=== PATIENT | female | born 1985 | race African-American/Black ===

== ENCOUNTER 2017-02-07 09:08 | Inpatient (IN) | payer MEDICAID ==
[2017-02-07] MEDS ORDERED: STADOL IV PRN (10:16)
[2017-02-07] MEDS ORDERED: XYLOCAINE 2% INFILTRATI ONE (10:16)
[2017-02-07] MEDS ORDERED: ePHEDrine SULFATE IV PRN ×2 (10:16→15:36)
[2017-02-07] MEDS ORDERED: MINERAL OIL PO PRN (10:16)
[2017-02-07] MEDS ORDERED: POLYCILLIN/NS 2 GM/100 ML 2 GM/100 ML BAG IV ONE (10:16)
[2017-02-07] MEDS ORDERED: SUBLIMAZE IV PRN (10:16)
[2017-02-07] MEDS ORDERED: BRETHINE SUB-Q PRN (10:16)
[2017-02-07] MEDS ORDERED: BRETHINE IVP PRN (10:16)
[2017-02-07] MEDS ORDERED: ZOFRAN IV PRN (10:16)
[2017-02-07 10:28] LABS: Hematocrit 34.5 % (30.3-42.9); Hemoglobin 11.1 gm/dl (10.1-14.3); Mean Corpuscular HGB Conc 32 % (30-34); Platelet Count 235 K/mm3 (140-440); Red Blood Count 4.95 M/mm3 (3.65-5.03); Red Cell Distribution Width 16.7 % (13.2-15.2); White Blood Count 10.3 K/mm3 (4.5-11.0)
[2017-02-07 10:31] LABS: Mean Corpuscular Hemoglobin 22 pg (28-32); Mean Corpuscular Volume 70 fl (79-97)
[2017-02-07] MEDS ORDERED: PITOCin/NS 20 UNIT/1000ML DRIP 20 UNITS/1,000 ML BAG IV SCH (11:00)
[2017-02-07] MEDS ORDERED: PITOCin/NS 30 UNIT/500ML 30 UNITS/500 ML BAG IV SCH (11:00)
[2017-02-07] MEDS: LACTATED RINGERS 1,000 ML IV SCH ×2 (11:02→14:55)
[2017-02-07] MEDS: PITOCin/NS 30 UNIT/500ML 30 UNITS/500 ML BAG IV SCH ×4 (11:02→14:35)
--- NOTE | 2017-02-07 12:13 | History and Physical Report ---
History of Present Illness Date of examination: 02/07/17 Date of admission: 02/07/17 11:25 Chief complaint: Leaking fluid, contractions History of present illness: 31 yo at at 39 weeks. care since 11.1 week at [facility], co managed with [facility] for Hx of PTD, obesity. 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 Family/Genetic History: diabetes, hypertension Social history: denies: smoking, alcohol abuse, prescription drug abuse, IV drug use - Obstetrical History Expected Date of Delivery: 02/14/17 Actual Gestation: 39 Week(s) 0 Day(s) : 4 Para: 2 Hx # Term Pregnancies: 0 Number of Pregnancies: 2 Spontaneous Abortions: 1 Induced : 0 Number of Living Children: 2 Medications and Allergies Allergies Allergy/AdvReac Type Severity Reaction Status Date / Time seafood Allergy Rash Uncoded 11/20/14 12:42 Home Medications Medication Instructions Recorded Confirmed Last Taken Type Vit-Fe Fumar-FA [ 1 tab PO QDAY 10/26/14 11/20/14 11/20/14 08: 00 History Vitamin] Active Meds: Active Medications Butorphanol Tartrate (Stadol) 2 mg IV Q2H PRN PRN Reason: Pain , Severe (7-10) Fentanyl (Sublimaze) 100 mcg IV Q2H PRN PRN Reason: Labor Pain Ampicillin Sodium (Polycillin/Ns 1 Gm/50 Ml) 1 gm in 50 mls @ 100 mls/hr IV Q4HR LISSETTE PRN Reason: Protocol Lactated Ringer's (Lactated Ringers) 1,000 mls @ 125 mls/hr IV DIRECT LISSETTE Last Admin: 02/07/17 11:02 Dose: 125 mls/hr Oxytocin/Sodium Chloride (Pitocin/Ns 20 Unit/1000ml Drip) 20 units in 1,000 mls @ 125 mls/hr IV DIRECT LISSETTE Oxytocin/Sodium Chloride (Pitocin/Ns 30 Unit/500ml) 30 units in 500 mls @ 1 mls /hr IV TITR LISSETTE; 1 MILLIUNITS/MIN PRN Reason: Protocol Oxytocin/Sodium Chloride (Pitocin/Ns 30 Unit/500ml) 30 units in 500 mls @ 2 mls /hr IV TITR LISSETTE PRN Reason: Protocol Last Admin: 02/07/17 11:02 Dose: 2 ml/hr, 2 mls/hr Mineral Oil (Mineral Oil) 30 ml PO QHS PRN PRN Reason: Constipation Ondansetron HCl (Zofran) 4 mg IV Q8H PRN PRN Reason: Nausea And Vomiting Review of Systems All systems: negative - Vital Signs Vital signs: Vital Signs Pulse Pulse Ox 92 H 96 02/07/17 09:38 02/07/17 09:38 Temp Pulse Resp BP Pulse Ox 97.9 F 121 H 18 108/72 95 02/07/17 10:55 02/07/17 12:06 02/07/17 10:55 02/07/17 10:55 02/07/17 12:06 - Physical Exam Cardiovascular: Normal S1 Lungs: Positive: Normal air movement Vagina: Positive: normal moisture Uterus: Positive: enlarged Extremities: Positive: normal Deep Tendon Reflex Grade: Normal +2 - Obstetrical FHR: category 1 Uterine Contraction Monitor Mode: External Cervical Dilatation: 3 Cervical Effacement Percentage: 70 station: -3 Uterine Contraction Frequency (min): q2-4 minutes Uterine Contraction Pattern: Regular Uterine Tone Measurement Phase: Resting Uterine Contraction Intensity: Moderate Results Result Diagrams: 02/07/17 10:04 Abnormal lab results 02/07/17 Range/Units 10:04 MCV 70 L (79-97) fl MCH 22 L (28-32) pg RDW 16.7 H (13.2-15.2) % All other labs normal. Assessment and Plan A: IUP at 39 weeks SROM 02/07 @0820 clear per pt Painful uterine contractions GBS + P: Admit to L&D GBS prophylaxis Continuous monitoring Epidural/IV pain meds as desired.
[2017-02-07] MEDS ORDERED: POLYCILLIN/NS 1 GM/50 ML 1 GM/50 ML BAG IV SCH (14:18)
[2017-02-07] MEDS ORDERED: ePHEDrine SULFATE ONE (15:01)
[2017-02-07] MEDS ORDERED: NARCAN 2 MG/2 ML IV PRN (15:36)
--- NOTE | 2017-02-07 15:36 | Anesthesia Consultation ---
Anesthesia Consult and Med Hx Date of service: 02/07/17 - Airway Anesthetic Teeth Evaluation: Good ROM Head & Neck: Adequate Mental/Hyoid Distance: Adequate Mallampati Class: Class II Intubation Access Assessment: Probably Good - Pulmonary Exam CTA: Yes - Cardiac Exam Cardiac Exam: RRR - Pre-Operative Health Status ASA Pre-Surgery Classification: ASA2 Proposed Anesthetic Plan: Epidural, Spinal - Pulmonary Hx Asthma: Yes (last attack 02/2009) COPD: No Hx Pneumonia: No - Cardiovascular System Hx Hypertension: No - Central Nervous System Hx Seizures: No Hx Psychiatric Problems: No - Endocrine Hx Renal Disease: No Hx End Stage Renal Disease: No Hx Hypothyroidism: No Hx Hyperthyroidism: No - Hematic Hx Anemia: No Hx Sickle Cell Disease: No - Other Systems Hx Alcohol Use: No Hx Obesity: Yes - Additional Comments Anesthesia Medical History Comments:
[2017-02-07] MEDS ORDERED: fentaNYL-BUPIV 2 MCG/ML-0.125% 200 MCG/100 ML BAG EPIDURAL SCH (16:00)
--- NOTE | 2017-02-07 16:11 | Progress Note ---
Assessment and Plan A: IUP at 39 weeks SROM 02/07 @0820 clear per pt Comfortable with epidural Hypotensive after epidural SVE /-1 GBS + P: Continue normal labor management GBS prophylaxis- Amp x 2 doses in Continuous monitoring, FSE in place Pitocin augmentation Ephedrine for post epidural hypotension. Epidural anesthesia Subjective - Subjective Date of service: 02/07/17 Principal diagnosis: IUP 39 weeks, actove labor Interval history: 31 yo at at 39 weeks. care since 11.1 week at [facility], co managed with [facility] for Hx of PTD, obesity. 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 Patient reports: movement normal Objective - Vital Signs Vital Signs: Vital Signs - 12hr 02/07/17 02/07/17 02/07/17 09:38 09:39 09:40 Temperature Pulse Rate 92 H 104 H 101 H Pulse Rate [ From Monitor] Respiratory Rate Blood Pressure 118/69 Blood Pressure [Left Arm] O2 Sat by Pulse 96 96 96 Oximetry 02/07/17 02/07/17 02/07/17 09:41 09:42 09:43 Temperature Pulse Rate 98 H 98 H 115 H Pulse Rate [ From Monitor] Respiratory Rate Blood Pressure Blood Pressure [Left Arm] O2 Sat by Pulse 97 96 96 Oximetry 02/07/17 02/07/17 02/07/17 09:44 09:45 09:46 Temperature Pulse Rate 108 H 107 H 90 Pulse Rate [ From Monitor] Respiratory Rate Blood Pressure Blood Pressure [Left Arm] O2 Sat by Pulse 97 96 96 Oximetry 02/07/17 02/07/17 02/07/17 09:47 09:48 09:49 Temperature Pulse Rate 97 H 107 H 85 Pulse Rate [ From Monitor] Respiratory Rate Blood Pressure Blood Pressure [Left Arm] O2 Sat by Pulse 95 96 82 L Oximetry 02/07/17 02/07/17 02/07/17 09:50 10:55 10:56 Temperature 97.9 F Pulse Rate 101 H 110 H Pulse Rate [ 115 H From Monitor] Respiratory 18 Rate Blood Pressure Blood Pressure 108/72 [Left Arm] O2 Sat by Pulse 82 L 100 93 Oximetry 02/07/17 02/07/17 02/07/17 10:58 11:01 11:03 Temperature Pulse Rate 116 H 112 H 115 H Pulse Rate [ From Monitor] Respiratory Rate Blood Pressure Blood Pressure [Left Arm] O2 Sat by Pulse 94 94 94 Oximetry 02/07/17 02/07/17 02/07/17 11:06 11:11 11:16 Temperature Pulse Rate 123 H 114 H 119 H Pulse Rate [ From Monitor] Respiratory Rate Blood Pressure Blood Pressure [Left Arm] O2 Sat by Pulse 95 93 96 Oximetry 02/07/17 02/07/17 02/07/17 11:21 11:26 11:31 Temperature Pulse Rate 119 H 123 H 124 H Pulse Rate [ From Monitor] Respiratory Rate Blood Pressure Blood Pressure [Left Arm] O2 Sat by Pulse 96 96 95 Oximetry 02/07/17 02/07/17 02/07/17 11:36 11:41 11:46 Temperature Pulse Rate 124 H 121 H 119 H Pulse Rate [ From Monitor] Respiratory Rate Blood Pressure Blood Pressure [Left Arm] O2 Sat by Pulse 95 95 96 Oximetry 02/07/17 02/07/17 02/07/17 11:49 11:51 11:56 Temperature Pulse Rate 125 H 120 H 117 H Pulse Rate [ From Monitor] Respiratory Rate Blood Pressure Blood Pressure [Left Arm] O2 Sat by Pulse 94 94 95 Oximetry 02/07/17 02/07/17 02/07/17 12:01 12:06 12:11 Temperature Pulse Rate 123 H 121 H 117 H Pulse Rate [ From Monitor] Respiratory Rate Blood Pressure Blood Pressure [Left Arm] O2 Sat by Pulse 95 95 94 Oximetry 02/07/17 02/07/17 02/07/17 12:16 12:21 12:26 Temperature Pulse Rate 118 H 124 H 120 H Pulse Rate [ From Monitor] Respiratory Rate Blood Pressure Blood Pressure [Left Arm] O2 Sat by Pulse 95 95 95 Oximetry 02/07/17 02/07/17 02/07/17 12:31 12:36 12:41 Temperature Pulse Rate 118 H 116 H 118 H Pulse Rate [ From Monitor] Respiratory Rate Blood Pressure Blood Pressure [Left Arm] O2 Sat by Pulse 95 94 94 Oximetry 02/07/17 02/07/17 02/07/17 12:46 12:51 12:56 Temperature Pulse Rate 114 H 122 H Pulse Rate [ From Monitor] Respiratory Rate Blood Pressure Blood Pressure [Left Arm] O2 Sat by Pulse 96 96 94 Oximetry 02/07/17 02/07/17 02/07/17 13:01 13:06 13:11 Temperature Pulse Rate 124 H 116 H 110 H Pulse Rate [ From Monitor] Respiratory Rate Blood Pressure Blood Pressure [Left Arm] O2 Sat by Pulse 95 95 95 Oximetry 02/07/17 02/07/17 02/07/17 13:16 13:21 13:26 Temperature Pulse Rate 107 H 110 H 115 H Pulse Rate [ From Monitor] Respiratory Rate Blood Pressure Blood Pressure [Left Arm] O2 Sat by Pulse 96 96 98 Oximetry 02/07/17 02/07/17 02/07/17 13:31 13:36 13:41 Temperature Pulse Rate 116 H 110 H 111 H Pulse Rate [ From Monitor] Respiratory Rate Blood Pressure Blood Pressure [Left Arm] O2 Sat by Pulse 97 97 97 Oximetry 02/07/17 02/07/17 02/07/17 13:46 13:51 13:53 Temperature Pulse Rate 117 H 118 H 113 H Pulse Rate [ From Monitor] Respiratory Rate Blood Pressure 111/67 Blood Pressure [Left Arm] O2 Sat by Pulse 97 97 Oximetry 02/07/17 02/07/17 02/07/17 13:56 14:01 14:06 Temperature Pulse Rate 110 H 122 H 117 H Pulse Rate [ From Monitor] Respiratory Rate Blood Pressure Blood Pressure [Left Arm] O2 Sat by Pulse 97 97 97 Oximetry 02/07/17 02/07/17 02/07/17 14:11 14:16 14:21 Temperature Pulse Rate 119 H 129 H 121 H Pulse Rate [ From Monitor] Respiratory Rate Blood Pressure Blood Pressure [Left Arm] O2 Sat by Pulse 98 96 97 Oximetry 02/07/17 02/07/17 02/07/17 14:26 14:31 14:54 Temperature 97.5 F L Pulse Rate 118 H 113 H Pulse Rate [ From Monitor] Respiratory Rate Blood Pressure Blood Pressure 111/67 [Left Arm] O2 Sat by Pulse 98 97 Oximetry 02/07/17 02/07/17 02/07/17 15:09 15:12 15:14 Temperature Pulse Rate 116 H 108 H 107 H Pulse Rate [ From Monitor] Respiratory Rate Blood Pressure 129/75 141/76 Blood Pressure [Left Arm] O2 Sat by Pulse 97 75 L Oximetry 02/07/17 02/07/17 02/07/17 15:16 15:18 15:20 Temperature Pulse Rate 99 H 117 H 108 H Pulse Rate [ From Monitor] Respiratory Rate Blood Pressure 130/70 140/71 128/65 Blood Pressure [Left Arm] O2 Sat by Pulse 78 L Oximetry 02/07/17 02/07/17 02/07/17 15:22 15:24 15:26 Temperature Pulse Rate 98 H 112 H 107 H Pulse Rate [ From Monitor] Respiratory Rate Blood Pressure 120/59 129/70 128/69 Blood Pressure [Left Arm] O2 Sat by Pulse 95 Oximetry 02/07/17 02/07/17 02/07/17 15:28 15:29 15:31 Temperature Pulse Rate 117 H 103 H 110 H Pulse Rate [ From Monitor] Respiratory Rate Blood Pressure 129/68 116/59 Blood Pressure [Left Arm] O2 Sat by Pulse 97 Oximetry 02/07/17 02/07/17 02/07/17 15:33 15:34 15:37 Temperature Pulse Rate 108 H 107 H 122 H Pulse Rate [ From Monitor] Respiratory Rate Blood Pressure 101/52 93/48 89/44 Blood Pressure [Left Arm] O2 Sat by Pulse Oximetry 02/07/17 02/07/17 02/07/17 15:38 15:40 15:43 Temperature Pulse Rate 120 H 119 H 121 H Pulse Rate [ From Monitor] Respiratory Rate Blood Pressure 82/46 89/50 90/54 Blood Pressure [Left Arm] O2 Sat by Pulse 100 Oximetry 02/07/17 02/07/17 02/07/17 15:44 15:45 15:46 Temperature Pulse Rate 129 H 130 H 121 H Pulse Rate [ From Monitor] Respiratory Rate Blood Pressure 92/52 90/55 Blood Pressure [Left Arm] O2 Sat by Pulse 100 Oximetry 02/07/17 02/07/17 02/07/17 15:48 15:50 15:53 Temperature Pulse Rate 113 H 117 H 114 H Pulse Rate [ From Monitor] Respiratory Rate Blood Pressure 88/50 94/51 108/49 Blood Pressure [Left Arm] O2 Sat by Pulse 100 Oximetry 02/07/17 02/07/17 02/07/17 15:55 15:56 15:58 Temperature Pulse Rate 110 H 112 H 92 H Pulse Rate [ From Monitor] Respiratory Rate Blood Pressure 95/55 91/47 93/52 Blood Pressure [Left Arm] O2 Sat by Pulse 100 Oximetry 02/07/17 02/07/17 16:00 16:04 Temperature Pulse Rate 124 H 123 H Pulse Rate [ From Monitor] Respiratory Rate Blood Pressure 81/42 Blood Pressure [Left Arm] O2 Sat by Pulse 100 Oximetry - Exam Cardiovascular: Regular rate Lungs: Normal air movement FHR: category 2 FHR comments: FHTs 150 with multiple variable decelerations. FSE placed by RN. Uterine Contraction Monitor Mode: External Cervical Dilatation: 9 Cervical Effacement Percentage: 90 station: -1 Uterine Contraction Frequency (min): q2-4 minutes Uterine Contraction Pattern: Regular Uterine Tone Measurement Phase: Resting Uterine Contraction Intensity: Moderate Extremities: normal - Labs Labs: Abnormal Labs 02/07/17 10:04 MCV 70 L MCH 22 L RDW 16.7 H Laboratory Results - last 24 hr 02/07/17 02/07/17 10:04 10:04 WBC 10.3 RBC 4.95 Hgb 11.1 Hct 34.5 MCV 70 L MCH 22 L MCHC 32 RDW 16.7 H Plt Count 235 Blood Type B POSITIVE Antibody Screen Negative
[2017-02-07] MEDS ORDERED: METHERGINE IM ONE (17:13)
--- NOTE | 2017-02-07 18:02 | Procedure Note ---
OB Delivery Note - Delivery Date of Delivery: 02/07/17 (1709) Surgeon: TIM GARCIA Estimated blood loss: other (400cc) - Vaginal Delivery position: OP Intrapartum events: none Delivery induction: none Delivery augmentation: pitocin Delivery monitor: external uterine, internal FHT Route of delivery: Delivery placenta: spontaneous Delivery cord: 3 umbilical vessels Delivery laceration: 3rd degree Delivery repair: vicryl Delivery comments: Jose F Gonzales was delivered on 02/07/17 at 1709. Baby responded well to drying and stimulation and was placed immediately on mom's chest and abdomen. Placenta was delivered at 1711. Cord was clamped at 5 minutes of life and cut by FOB. Apgars 8/9. Third degree perineal laceration repaired by Lashawn Leos CNM. - Infant A at 1 minute: 8 at 5 minutes: 9 Gender: Male
[2017-02-07] MEDS ORDERED: MILK OF MAGNESIA PO PRN (18:08)
[2017-02-07] MEDS ORDERED: TUCKS PAD TP PRN (18:08)
[2017-02-07] MEDS ORDERED: PHENERGAN PR PRN (18:08)
[2017-02-07] MEDS ORDERED: TYLENOL PO PRN (18:08)
[2017-02-07] MEDS ORDERED: DULCOLAX PR PRN (18:08)
[2017-02-07] MEDS ORDERED: DERMOPLAST TP PRN (18:08)
[2017-02-07] MEDS ORDERED: ANUCORT-HC PR PRN (18:08)
[2017-02-07] MEDS ORDERED: NORCO 5/325 PO PRN (18:08)
[2017-02-07] MEDS ORDERED: LANSINOH TP PRN (18:08)
[2017-02-07] MEDS: MOTRIN PO SCH (18:35)
[2017-02-07] MEDS ORDERED: SODIUM CHLORIDE FLUSH SYRINGE 10 ML IV NR (19:00)
[2017-02-07] MEDS: COLACE PO SCH (21:19)
[2017-02-08] MEDS: MOTRIN PO SCH ×4 (00:12→18:12)
[2017-02-08] MEDS ORDERED: BOOSTRIX IM ONE (06:00)
[2017-02-08 06:21] LABS: Hematocrit 27.5 % (30.3-42.9); Hemoglobin 8.8 gm/dl (10.1-14.3)
--- NOTE | 2017-02-08 09:50 | Progress Note ---
Assessment and Plan A: PPD # 1 -stable P: Plan discharge in am Subjective - Subjective Date of service: 02/08/17 Principal diagnosis: IUP 39 weeks, actove labor Patient reports: appetite normal [place]: doing well Objective - Vital Signs Latest vital signs: Vital Signs Temp Pulse Pulse Resp BP BP Pulse Ox 02/08/17 00:20 98.5 F 103 H 18 97/61 02/07/17 19:45 98.0 F 109 H 18 106/64 02/07/17 18:43 115 H 113/68 02/07/17 18:30 107/68 02/07/17 18:28 116 H 107/68 02/07/17 18:14 112 H 107/63 02/07/17 17:59 107 H 102/55 02/07/17 17:56 115 H 115/67 02/07/17 17:43 108 H 103/61 02/07/17 17:28 116 H 101/61 02/07/17 17:23 110 H 105/63 02/07/17 17:15 98.2 F 123/55 02/07/17 17:00 123 H 100 02/07/17 16:55 120 H 123/55 100 02/07/17 16:50 118 H 100 02/07/17 16:45 117 H 100 02/07/17 16:40 121 H 99/60 100 02/07/17 16:35 115 H 100 02/07/17 16:30 121 H 100 02/07/17 16:25 111 H 100 02/07/17 16:23 120 H 98/53 02/07/17 16:21 122 H 103/67 02/07/17 16:20 110 H 100 02/07/17 16:18 121 H 86/52 02/07/17 16:16 114 H 96/54 02/07/17 16:15 104 H 88/54 100 02/07/17 16:12 96 H 95/53 02/07/17 16:10 111 H 90/53 100 02/07/17 16:08 114 H 92/54 02/07/17 16:06 112 H 87/51 02/07/17 16:05 96 H 100 02/07/17 16:04 123 H 81/42 02/07/17 16:00 124 H 100 02/07/17 15:58 92 H 93/52 02/07/17 15:56 112 H 91/47 02/07/17 15:55 110 H 95/55 100 02/07/17 15:53 114 H 108/49 02/07/17 15:50 117 H 94/51 100 02/07/17 15:48 113 H 88/50 02/07/17 15:46 121 H 90/55 02/07/17 15:45 130 H 100 02/07/17 15:44 129 H 92/52 02/07/17 15:43 121 H 90/54 02/07/17 15:40 119 H 89/50 100 02/07/17 15:38 120 H 82/46 02/07/17 15:37 122 H 89/44 02/07/17 15:34 107 H 93/48 02/07/17 15:33 108 H 101/52 02/07/17 15:31 110 H 116/59 02/07/17 15:29 103 H 97 02/07/17 15:28 117 H 129/68 02/07/17 15:26 107 H 128/69 02/07/17 15:24 112 H 129/70 95 02/07/17 15:22 98 H 120/59 02/07/17 15:20 108 H 128/65 02/07/17 15:18 117 H 140/71 02/07/17 15:16 99 H 130/70 78 L 02/07/17 15:14 107 H 141/76 75 L 02/07/17 15:12 108 H 129/75 02/07/17 15:09 116 H 97 02/07/17 14:54 97.5 F L 111/67 02/07/17 14:31 113 H 97 02/07/17 14:26 118 H 98 02/07/17 14:21 121 H 97 02/07/17 14:16 129 H 96 02/07/17 14:11 119 H 98 02/07/17 14:06 117 H 97 02/07/17 14:01 122 H 97 02/07/17 13:56 110 H 97 02/07/17 13:53 113 H 111/67 17 13:51 118 H 97 02/07/17 13:46 117 H 97 02/07/17 13:41 111 H 97 02/07/17 13:36 110 H 97 02/07/17 13:31 116 H 97 02/07/17 13:26 115 H 98 02/07/17 13:21 110 H 96 02/07/17 13:16 107 H 96 02/07/17 13:11 110 H 95 02/07/17 13:06 116 H 95 02/07/17 13:01 124 H 95 02/07/17 12:56 94 02/07/17 12:51 122 H 96 02/07/17 12:46 114 H 96 02/07/17 12:41 118 H 94 02/07/17 12:36 116 H 94 02/07/17 12:31 118 H 95 02/07/17 12:26 120 H 95 02/07/17 12:21 124 H 95 02/07/17 12:16 118 H 95 02/07/17 12:11 117 H 94 02/07/17 12:06 121 H 95 02/07/17 12:01 123 H 95 02/07/17 11:56 117 H 95 02/07/17 11:51 120 H 94 02/07/17 11:49 125 H 94 02/07/17 11:46 119 H 96 02/07/17 11:41 121 H 95 02/07/17 11:36 124 H 95 02/07/17 11:31 124 H 95 02/07/17 11:26 123 H 96 02/07/17 11:21 119 H 96 02/07/17 11:16 119 H 96 02/07/17 11:11 114 H 93 02/07/17 11:06 123 H 95 02/07/17 11:03 115 H 94 02/07/17 11:01 112 H 94 02/07/17 10:58 116 H 94 02/07/17 10:56 110 H 93 02/07/17 10:55 97.9 F 115 H 18 108/72 100 02/07/17 09:50 101 H 82 L 02/07/17 09:49 85 82 L Intake and Output 02/07/17 02/08/17 02/08/17 22:59 06:59 14:59 Intake Total 120 360 Output Total 400 Balance -280 360 Intake: Oral 120 360 Output: Urine 400 Indwelling Catheter 400 Other: Total, Intake Amount 120 120 Total, Output Amount 400 Estimated Blood Loss 400 - Exam Breasts: Present: deferred Cardiovascular: Present: Regular rate Lungs: Present: Clear to auscultation Abdomen: Present: soft Vulva: both: normal Uterus: Present: fundal height below umbilicus Extremities: Present: normal Deep Tendon Reflex Grade: Normal +2 - Labs Labs: Abnormal lab results 02/07/17 02/08/17 Range/Units 10:04 05:38 Hgb 8.8 L (10.1-14.3) gm/dl Hct 27.5 L D (30.3-42.9) % MCV 70 L (79-97) fl MCH 22 L (28-32) pg RDW 16.7 H (13.2-15.2) %
--- NOTE | 2017-02-08 09:51 | Discharge Summary ---
Providers - Providers Date of Admission: 02/07/17 11:25 Date of discharge: 02/09/17 Attending physician: KATHERYN KEITH MD Primary care physician: KATHERYN KEITH MD Hospitalization Reason for admission: active labor Delivery: Laceration: 3rd degree Incision: intact Other procedures: none complications: none Discharge diagnosis: IUP at term delivered baby: male Condition at discharge: Good Disposition: DISCHARGED TO HOME OR SELFCARE Plan - Provider Discharge Summary Activity: routine, no sex for 6 weeks, no strenuous exercise Additional instructions: [] Smoking cessation referral if applicable(refer to patient education folder for contact #) [] Refer to [facility] Booklet Call your doctor immediately for: * Fever > 100.5 * Heavy vaginal bleeding ( >1 pad per hour) * Severe persistent headache * Shortness of breath * Reddened, hot, painful area to leg or breast * Drainage or odor from incision. * Keep incision clean and dry at all times and follow doctor's instructions regarding bathing/showering - Follow up plan Follow up: [facility] [Provider Group] - 6 Weeks
--- NOTE | 2017-02-08 10:52 | Progress Note ---
Subjective Date of service: 02/08/17 Principal diagnosis: IUP 39 weeks, actove labor Interval history: 1st day after normal vaginal delivery Patient is in the bed, comfortable. Pain is well controlled with pain meds. Ambulated well. No residual neurological deficit. No anesthesia complications Objective - Constitutional Vitals: Vital Signs - 12hr 02/08/17 02/08/17 00:20 08:00 Temperature 98.5 F 98.2 F Pulse Rate [ 103 H 90 From Monitor] Respiratory 18 18 Rate Blood Pressure 97/61 84/57 [Left Arm] - Labs CBC & Chem 7: 02/08/17 05:38 Labs: Abnormal lab results 02/08/17 Range/Units 05:38 Hgb 8.8 L (10.1-14.3) gm/dl Hct 27.5 L D (30.3-42.9) %
[2017-02-08] MEDS: PRENATAL VITAMIN PO SCH (10:58)
[2017-02-08] MEDS: COLACE PO SCH ×2 (10:58→22:14)
[2017-02-09] MEDS: MOTRIN PO SCH ×3 (00:21→11:50)
[2017-02-09] MEDS: PRENATAL VITAMIN PO SCH (11:50)
[2017-02-09] MEDS: COLACE PO SCH (11:50)
[2017-02-09 12:01] VITALS: BP 124/65
== END 2017-02-09 12:50 | disposition home or self-care (01) | DRG 988 ==
LOC: TRG 09:08 → LD 11:25 → OB 20:03
PROVIDERS: ADMIT Obstetrics & Gynecology; ATTEND Obstetrics & Gynecology
PROC: 10E0XZZ Delivery of Products of Conception, External Approach (ICD-10-PCS; principal; 2017-02-07)
PROC: 0DQR0ZZ Repair Anal Sphincter, Open Approach (ICD-10-PCS; 2017-02-07)
PROC: 00HU33Z Insertion of Infusion Device into Spinal Canal, Percutaneous Approach (ICD-10-PCS; 2017-02-07)
PROC: 3E0R3CZ (ICD-10-PCS; 2017-02-07)
DX: O42.92 Full-term premature rupture of membranes, unspecified as to length of time between rupture and onset of labor (principal); O70.20 Third degree perineal laceration during delivery, unspecified; O98.52 Other viral diseases complicating childbirth; O99.12 Other diseases of the blood and blood-forming organs and certain disorders involving the immune mechanism complicating childbirth; Z37.0 Single live birth; O99.824 Streptococcus B carrier state complicating childbirth; B00.9 Herpesviral infection, unspecified; F43.10 Post-traumatic stress disorder, unspecified; O99.344 Other mental disorders complicating childbirth; O99.214 Obesity complicating childbirth; E66.9 Obesity, unspecified; O99.52 Diseases of the respiratory system complicating childbirth; J45.909 Unspecified asthma, uncomplicated; D56.5 Hemoglobin E-beta thalassemia; Z3A.39 39 weeks gestation of pregnancy; Z83.3 Family history of diabetes mellitus; Z82.49 Family history of ischemic heart disease and other diseases of the circulatory system; Z91.013 Allergy to seafood
CPT/HCPCS: 36415; 85014; 85018; 85027; 86850; 86900; 86901; 90471; 90715; 99211; G0463; J0290; J2210; J2590; J7120

== ENCOUNTER 2022-06-21 13:42 | Inpatient (IN) | payer MEDICAID, OTHER ==
[2022-06-21] MEDS ORDERED: METHYLERGONOVINE MALEATE 0.2 MG/ML VIAL IM PRN (13:49)
[2022-06-21] MEDS ORDERED: LIDOCAINE (2%) 20 MG/1 ML VIAL 20 ML MDV INFILTRATI ONE (13:49)
[2022-06-21] MEDS ORDERED: miSOPROStol 200 MCG TAB PR PRN (13:49)
[2022-06-21] MEDS ORDERED: MINERAL OIL 30 ML ORAL LIQD PO PRN (13:49)
[2022-06-21] MEDS ORDERED: NALOXONE 0.4 MG/1 ML INJ IV PRN (13:49)
[2022-06-21] MEDS ORDERED: ePHEDrine SULFATE 50 MG/1 ML INJ IV PRN (13:49)
[2022-06-21] MEDS ORDERED: ACETAMINOPHEN 325 MG TAB PO PRN (13:49)
[2022-06-21] MEDS ORDERED: CARBOPROST TROMETHAMINE 250 MCG/1 ML INJ IM PRN (13:49)
[2022-06-21] MEDS ORDERED: LOPERAMIDE 2 MG CAP PO PRN (13:49)
[2022-06-21] MEDS ORDERED: OXYTOCIN 10 UNIT/1 ML INJ IM PRN (13:49)
[2022-06-21] MEDS ORDERED: PROMETHAZINE 25 MG TAB PO PRN (13:49)
[2022-06-21] MEDS ORDERED: TERBUTALINE 1 MG/1 ML INJ SUB-Q PRN (13:49)
[2022-06-21] MEDS ORDERED: BUTORPHANOL 2 MG/1 ML INJ IV PRN ×2 (13:49)
[2022-06-21] MEDS ORDERED: ONDANSETRON 4 MG/2 ML INJ IV PRN (13:49)
[2022-06-21] MEDS ORDERED: OXYTOCIN DRIP 30 UNITS/500 ML BAG IV SCH ×2 (14:00)
[2022-06-21] MEDS: LACTATED RINGERS 1,000 ML IV SCH ×2 (15:15→16:52)
[2022-06-21 16:47] LABS: Hemoglobin 11.9 gm/dl (10.1-14.3); Mean Corpuscular HGB Conc 32 % (30-34); Mean Corpuscular Volume 75 fl (79-97); Platelet Count 187 K/mm3 (140-440); Red Blood Count 4.95 M/mm3 (3.65-5.03); Red Cell Distribution Width 15.6 % (13.2-15.2)
--- NOTE | 2022-06-21 17:57 | History and Physical Report ---
History of Present Illness Date of examination: 06/21/22 Date of admission: 06/21/22 13:49 06/21/22 Chief complaint: IOL for MO History of present illness: 37yo @39.2wks, [place] 06/26/22, presents to L&D for IOL due to MO. She follows [facility]. Past History Past Medical History: asthma (mild), other (MO) [employer] History: herpes (no sores) Family/Genetic History: none Social history: - Obstetrical History Expected Date of Delivery: 06/26/22 Actual Gestation: 39 Week(s) 2 Day(s) : 5 Para: 3 Hx # Term Pregnancies: 2 Number of Pregnancies: 1 Spontaneous Abortions: 0 Induced : 1 Number of Living Children: 3 Medications and Allergies Allergies Allergy/AdvReac Type Severity Reaction Status Date / Time seafood Allergy Rash Uncoded 11/20/14 12:42 Home Medications Medication Instructions Recorded Confirmed Last Taken Type Vit-Fe Fumar-FA [ 1 tab PO QDAY 10/26/14 02/08/17 11/20/14 08: 00 History Vitamin] Active Meds: Active Medications Acetaminophen (Acetaminophen 325 Mg Tab) 650 mg PO Q4H PRN PRN Reason: Pain, Mild (1-3) Butorphanol Tartrate (Butorphanol 2 Mg/1 Ml Inj) 1 mg IV Q2H PRN PRN Reason: Pain, Moderate(4-6) LABOR PAIN Butorphanol Tartrate (Butorphanol 2 Mg/1 Ml Inj) 2 mg IV Q2H PRN PRN Reason: Pain , Severe (7-10) Carboprost Tromethamine (Carboprost Tromethamine 250 Mcg/1 Ml Inj) 250 mcg IM ONCE PRN PRN Reason: Uterine Bleeding Ephedrine Sulfate (Ephedrine Sulfate 50 Mg/1 Ml Inj) 10 mg IV Q2M PRN PRN Reason: Hypotension Oxytocin/Sodium Chloride (Pitocin/Ns 30 Unit/500ml) 30 units in 500 mls @ 2 mls/hr IV TITR LISSETTE; Protocol Lactated Ringer's (Lactated Ringers) 1,000 mls @ 125 mls/hr IV DIRECT LISSETTE Last Admin: 06/21/22 16:52 Dose: 125 mls/hr Oxytocin/Sodium Chloride (Pitocin/Ns 30 Unit/500ml) 30 units in 500 mls @ 40 mls/hr IV TITR LISSETTE; Protocol Loperamide HCl (Loperamide 2 Mg Cap) 2 mg PO ONCE PRN PRN Reason: give with Hemabate Methylergonovine Maleate (Methylergonovine Maleate 0.2 Mg/Ml Vial) 0.2 mg IM ONCE PRN PRN Reason: Uterine Bleeding Mineral Oil (Mineral Oil 30 Ml Oral Liqd) 30 ml PO QHS PRN PRN Reason: Constipation Misoprostol (Misoprostol 200 Mcg Tab) 800 mcg RI ONCE PRN PRN Reason: Uterine Bleeding Naloxone HCl (Naloxone 0.4 Mg/1 Ml Inj) 0.1 mg IV Q2MIN PRN PRN Reason: Res Rate </= 8 or 02 SAT < 92% Ondansetron HCl (Ondansetron 4 Mg/2 Ml Inj) 4 mg IV Q8H PRN PRN Reason: Nausea And Vomiting Oxytocin (Oxytocin 10 Unit/1 Ml Inj) 10 unit IM ONCE PRN PRN Reason: Uterine Bleeding Promethazine HCl (Promethazine 25 Mg Tab) 25 mg PO Q6H PRN PRN Reason: Nausea And Vomiting Terbutaline Sulfate (Terbutaline 1 Mg/1 Ml Inj) 0.25 mg SUB-Q ONCE PRN PRN Reason: Hyperstimulation/Hypertonicity Review of Systems All systems: negative Constitutional: weight gain Breasts: deferred Genitourinary: contractions Allergic/Immunologic: wheezing - Vital Signs Vital signs: Vital Signs Pulse BP 114 H 142/76 06/21/22 14:19 06/21/22 14:19 Temp Pulse Resp BP Pulse Ox 105 H 20 126/65 97 06/21/22 17:50 06/21/22 16:07 06/21/22 17:44 06/21/22 17:50 - Physical Exam Breasts: Positive: deferred Cardiovascular: Regular rate Lungs: Positive: Other (crackles right upper post ) Abdomen: Positive: other (large) Genitourinary (Female): Positive: normal external genitalia, normal perenium Vulva: both: normal Vagina: Positive: discharge (slight bloody show) Uterus: Positive: enlarged (gravid) Anus/Rectum: Positive: normal perianal skin Extremities: Positive: edema (+1 pitting) Deep Tendon Reflex Grade: Normal +2 - Obstetrical FHR: category 1 Uterine Contraction Monitor Mode: External Cervical Dilatation: 5 Cervical Effacement Percentage: 80 (BBW) station: -3 Uterine Contraction Frequency (min): 4 Uterine Contraction Pattern: Irregular Uterine Contraction Intensity: Moderate Results Result Diagrams: 06/21/22 15:20 Abnormal lab results 06/21/22 Range/Units 15:20 WBC 12.3 H (4.5-11.0) K/mm3 MCV 75 L (79-97) fl MCH 24 L (28-32) pg RDW 15.6 H (13.2-15.2) % All other labs normal. Assessment and Plan A: MO, AMA, mild Asthma IOL GBS neg P: Nursing management per protocol TOCO/EFM monitoring
[2022-06-21] MEDS ORDERED: LACTATED RINGERS 1,000 ML IV SCH (21:30)
[2022-06-21 21:33] LABS: Alanine Aminotransferase 22 units/L (7-56); Uric Acid 6.8 mg/dL (3.5-7.6)
[2022-06-21] MEDS ORDERED: ALBUTEROL 2.5 MG/3 ML NEBU IH PRN (21:44)
[2022-06-21 23:44] LABS: Bilirubin,Urine Negative (Negative); Blood,Urine Large (Negative); Color,Urine Yellow (Yellow)
[2022-06-21 23:45] LABS: PH,Urine 7.5 (5.0-7.0); Protein,Urine <30 mg dL mg/dL (Negative); Urobilinogen,Urine 0.2 mg/dL (<2.0)
[2022-06-21 23:46] LABS: Mucus,Urine FEW /HPF
[2022-06-21 23:53] LABS: Creatinine,Urine 121.1 mg/dL (0.1-20.0); Protein/Creatinine Ratio,Urine 0.24
--- NOTE | 2022-06-22 01:27 | Anesthesia Consultation ---
Anesthesia Consult and Med Hx Date of service: 06/22/22 - Airway Anesthetic Teeth Evaluation: Good ROM Head & Neck: Adequate Mental/Hyoid Distance: Adequate Mallampati Class: Class II Intubation Access Assessment: Good - Pulmonary Exam CTA: Yes - Cardiac Exam Cardiac Exam: RRR - Pre-Operative Health Status ASA Pre-Surgery Classification: ASA2 Proposed Anesthetic Plan: Epidural - Pulmonary Hx Asthma: Yes (LAST ATTACK WAS IN 2008) COPD: No Hx Pneumonia: No - Cardiovascular System Hx Hypertension: No - Central Nervous System Hx Seizures: No Hx Psychiatric Problems: No - Endocrine Hx Renal Disease: No Hx End Stage Renal Disease: No Hx Hypothyroidism: No Hx Hyperthyroidism: No - Hematic Hx Anemia: No Hx Sickle Cell Disease: No - Other Systems Hx Alcohol Use: No Hx Obesity: Yes
--- NOTE | 2022-06-22 01:27 | Anesthesia Day of Surgery ---
Anesthesia Day of Surgery - Day of Surgery Patient Examined: Yes Patient H&P Reviewed: Yes Patient is NPO: Yes
--- NOTE | 2022-06-22 01:30 | Progress Note ---
Labor Epidural - Labor Epidural Performed by:: RAY LUGO Procedure: Patient is requesting epidural for labor and pain. H&P, labs were reviewed. Patient IDed, all questions and concerns were answered, and consent was signed. Timeout was performed at bedside. Patient in sitting position. Sterile prep and drape was performed. 3ml of 1% lidocaine skin wheal at L[3]- L [4]. 17- gauge Tuohy epidural needle was advanced to loss of resistance with air technique cm. Negative CSF negative blood. Epidural catheter advanced to [18] centimeters. [negative] Aspiration [negative] test dose. Sterile dressing applied. Patient tolerated procedure.
[2022-06-22] MEDS ORDERED: NALOXONE 0.4 MG/1 ML INJ IV PRN (01:33)
[2022-06-22] MEDS ORDERED: ePHEDrine SULFATE 50 MG/1 ML INJ IV PRN (01:33)
[2022-06-22] MEDS ORDERED: fentaNYL-BUPIV 2 MCG/ML-0.125% 200 MCG/100 ML BAG EPIDURAL SCH (02:00)
[2022-06-22] MEDS ORDERED: MAGNESIUM HYDROXIDE (MOM) ORAL LIQD UDC PO PRN (05:08)
[2022-06-22] MEDS ORDERED: WITCH HAZEL/ GLYCERIN PAD TP PRN (05:08)
[2022-06-22] MEDS ORDERED: LANOLIN/ZINC/DIMETHICONE (LANSINOH) 7 GM TP PRN (05:08)
[2022-06-22] MEDS ORDERED: ALBUTEROL 8.5 GM MDI INHALATION IH PRN (05:12)
--- NOTE | 2022-06-22 05:19 | Procedure Note ---
OB Delivery Note - Delivery Date of Delivery: 06/22/22 Surgeon: IND[place] ROTHMAN Estimated blood loss: 300cc - Vaginal Delivery presentation: vertex Delivery position: OP Intrapartum events: meconium, other(please specify) (Gestational hypertension, AMA, Obesity) Delivery induction: oxytocin Delivery augmentation: rupture of membranes Delivery monitor: external FHT, external uterine Route of delivery: Delivery placenta: spontaneous Delivery cord: 3 umbilical vessels Episiotomy: none Delivery laceration: 2nd degree Delivery repair: vicryl Anesthesia: epidural - Infant A at 1 minute: 8 at 5 minutes: 9 Infant Gender: Female
[2022-06-22] MEDS: HYDROcodone/ACETAMINOPHEN 5-325 MG TAB PO PRN ×2 (06:39→15:42)
[2022-06-22] MEDS: BENZOCAINE/MENTHOL 20/0.5% TOP SPRAY 56 GM TP PRN ×2 (06:40→10:01)
--- NOTE | 2022-06-22 07:22 | Post Anesthesia Evaluation ---
- Post Anesthesia Evaluation Patient Participated: Yes Airway Patent: Yes Stable Respiratory Function: Yes Nausea/Vomiting: No Temp > 96.8F: Yes Pain Manageable: Yes Adequeate Hydration: Yes Anesthesia Complications: No Block Receding Appropriately: Yes Patient on Ventilator: No
--- NOTE | 2022-06-22 09:54 | XRay Report ---
CHEST 2 VIEWS INDICATION / CLINICAL INFORMATION: Crackles, Asthma. COMPARISON: None available. FINDINGS: SUPPORT DEVICES: None. HEART / MEDIASTINUM: No significant abnormality. LUNGS / PLEURA: There is central peribronchial thickening with otherwise clear lungs. No significant pleural effusion or pneumothorax. ADDITIONAL FINDINGS: No significant additional findings. IMPRESSION: Peribronchial thickening is likely security representative of reactive airway disease. No significant abnormal ity to explain the patient's crackles. Signer Name: Raul Jimenez MD Signed: 06/22/2022 9:50 AM Workstation Name: [id number]
[2022-06-22] MEDS: PRENATAL VIT27-FE FUMARATE-FOLIC ACID VIT TAB PO SCH (10:01)
[2022-06-22] MEDS: DOCUSATE SODIUM 100 MG CAP PO SCH ×2 (10:01→23:00)
[2022-06-22 19:04] LABS: Hematocrit 29.8 % (30.3-42.9); Hemoglobin 9.6 gm/dl (10.1-14.3)
--- NOTE | 2022-06-23 09:56 | Progress Note ---
Assessment and Plan PPD#1 with H/O asthma, now wheezing; Also right flank pain with urine culture results pending; maternal tacchycardia 1. Will give albuterol med neb now and every 4hrs prn wheezing 2. Will send for CXR to rule out any cardiopulm issues 3. Will start ceftriaxone daily with Right CVA tenderness 4. Anesthesia to follow up today on pt concerns with epidural placement 5. Routine care and pt encouraged to ambulate in the room Subjective Date of service: 06/23/22 Principal diagnosis: PPD#1 Interval history: pt c/o severe back pain more on the right side. Partner of pt also states that there were multiple attempts with epidural placement. pt admits to voiding more frequent. Denies fever or chills. Pt also with dyspnea and audible wheezing. Denies pelvic pain. Vag bleed like a period. pt denies headache. Pt had to be assisted back in bed because she could not lift her legs while seated on the edge of the bed. Objective - Neck Neck: normal ROM - Respiratory Respiratory effort: labored Respiratory: bilateral: wheezing - Cardiovascular Rhythm: regular Extremities: No edema - Gastrointestinal General gastrointestinal: Present: soft, non-tender - Genitourinary Female genitourinary: deferred - Integumentary Integumentary: warm - Musculoskeletal Musculoskeletal: other (right CVA tenderness mild noted, no swelling or erythema noted to epidural site) - Neurologic Neurologic: moves all extremities - Psychiatric Psychiatric: cooperative - Labs CBC & Chem 7: 06/22/22 18:38 06/21/22 20:35 Labs: Abnormal lab results 06/22/22 Range/Units 18:38 Hgb 9.6 L (10.1-14.3) gm/dl Hct 29.8 L D (30.3-42.9) % Medications & Allergies - Medications Allergies/Adverse Reactions: Allergies seafood Allergy (Uncoded 11/20/14 12:42) Rash Home Medications: Home Medications Medication Instructions Recorded Confirmed Last Taken Type Vit-Fe Fumar-FA [ 1 tab PO QDAY 10/26/14 02/08/17 11/20/14 08:00 History Vitamin] Active Medications: Generic Name Dose Route Start Last Admin Trade Name Freq PRN Reason Stop Dose Admin Acetaminophen 650 mg 06/22/22 05:08 Acetaminophen 325 Mg Tab PO Q4H PRN Pain MILD(1-3)/Fever >100.5/ANGEL Hydrocodone Bitart/Acetaminophen 2 each 06/22/22 05:08 06/22/22 15:42 Hydrocodone/Acetaminophen 5-325 Mg Tab PO 2 each Q6H PRN Administration Pain, Moderate (4-6) Albuterol 2.5 mg 06/23/22 12:00 Albuterol 2.5 Mg/3 Ml Nebu IH Q4HRT LISSETTE Benzocaine/Menthol 1 spray 06/22/22 05:08 06/22/22 10:01 Benzocaine/Menthol 20/0.5% [place] 56 Gm TP 1 spray PRN PRN Administration Episiotomy Pain Docusate Sodium 100 mg 06/22/22 10:00 06/22/22 23:00 Docusate Sodium 100 Mg Cap PO Not Given BID LISSETTE Magnesium Hydroxide 30 ml 06/22/22 05:08 Magnesium Hydroxide (Mom) Oral Liqd Udc PO HS PRN Constipation Multi-Ingredient Ointment 1 applic 06/22/22 05:08 Lanolin/Zinc/Dimethicone (Lansinoh) 7 Gm TP PRN PRN Sore Nipples Multivitamins/Iron/Calcium 1 each 06/22/22 10:00 06/22/22 10:01 [id number] Fumarate-Folic Acid Vit Tab PO 1 each QDAY LISSETTE Administration Witch Vivien/Glycerin 1 each 06/22/22 05:08 06/22/22 06:41 Witch Vivien/ Glycerin Pad TP 1 each PRN PRN Administration Hemorrhoid/cleansing/soothing
--- NOTE | 2022-06-23 10:08 | XRay Report ---
CHEST 2 VIEWS INDICATION / CLINICAL INFORMATION: dyspnea, wheezing, tacchycardia pneumonia. COMPARISON: June 22, 2022 FINDINGS: SUPPORT DEVICES: None. HEART / MEDIASTINUM: Mild increased pulmonary vascularity with perihilar prominence LUNGS / PLEURA: No significant pulmonary or pleural abnormality. No pneumothorax. ADDITIONAL FINDINGS: No significant additional findings. IMPRESSION: 1. Mild increased pulmonary vascularity. Signer Name: Johnny Pan MD Signed: 06/23/2022 10:03 AM Workstation Name: [id number]
[2022-06-23] MEDS ORDERED: LIDOCAINE-MPF (1%) 10 MG/1 ML VIAL 5 ML INFILTRATI NR (10:10)
[2022-06-23 11:12] LABS: Alanine Aminotransferase 29 units/L (7-56); Albumin 3.1 g/dL (3.9-5); Blood Urea Nitrogen 13 mg/dL (7-17); Calcium 9.2 mg/dL (8.4-10.2); Hemolysis Index 6
[2022-06-23 11:19] LABS: BUN/Creatinine Ratio 19
[2022-06-23] MEDS: ACETAMINOPHEN 325 MG TAB PO PRN (11:25)
[2022-06-23] MEDS: DOCUSATE SODIUM 100 MG CAP PO SCH ×2 (11:25→21:45)
[2022-06-23] MEDS: PRENATAL VIT27-FE FUMARATE-FOLIC ACID VIT TAB PO SCH (11:26)
[2022-06-23 11:42] LABS: Basophils % (Auto) 0.3 % (0.0-1.8); Eosinophils # (Auto) 0.3 K/mm3 (0.0-0.4); Eosinophils % (Auto) 2.7 % (0.0-4.3); Hematocrit 30.3 % (30.3-42.9); Hemoglobin 9.9 gm/dl (10.1-14.3); Lymphocytes # (Auto) 1.9 K/mm3 (1.2-5.4); Lymphocytes % (Auto) 15.5 % (13.4-35.0); Mean Corpuscular HGB Conc 33 % (30-34); Mean Corpuscular Volume 76 fl (79-97); Monocytes # (Auto) 0.8 K/mm3 (0.0-0.8); Monocytes % (Auto) 6.6 % (0.0-7.3); Platelet Count 151 K/mm3 (140-440); Red Blood Count 4.01 M/mm3 (3.65-5.03); Red Cell Distribution Width 15.7 % (13.2-15.2)
[2022-06-23] MEDS ORDERED: ALBUTEROL 2.5 MG/3 ML NEBU IH PRN (12:00)
[2022-06-23] MEDS ORDERED: ALBUTEROL 2.5 MG/3 ML NEBU IH SCH (12:00)
[2022-06-23] MEDS: HYDROcodone/ACETAMINOPHEN 5-325 MG TAB PO PRN (20:20)
[2022-06-24] MEDS: ACETAMINOPHEN 325 MG TAB PO PRN (06:19)
[2022-06-24 09:08] VITALS: BP 130/63
--- NOTE | 2022-06-24 11:10 | Progress Note ---
Assessment and Plan A: PP Day #2 Asthma Morbid Obesity Asymptomatic Anemia P: Follow Routine Orders Continue Inhaler @ home as needed D/C Home today per patient request RTO in One Week Subjective - Subjective Date of service: 06/24/22 Principal diagnosis: PPD#1 Patient reports: appetite normal, voiding normally, pain well controlled, flatus, bowel movement, ambulating normally, other (Denies HAs, dizziness, epigastic gain, and difficulty breathing) : doing well, bottle feeding (and ) Objective - Vital Signs Latest vital signs: Vital Signs Temp Pulse Pulse Resp Resp BP Pulse Ox 06/24/22 09:44 88 23 06/24/22 08:17 98.0 F 95 H 18 130/63 93 06/24/22 01:42 98.4 F 84 20 138/80 95 06/23/22 17:42 98.5 F 101 H 20 144/72 91 Intake and Output 06/23/22 06/24/22 06/24/22 22:59 06:59 14:59 Intake Total 960 240 Balance 960 240 Intake: Oral 600 240 Intake, Free Water 360 Other: Total, Intake Amount 600 240 # Voids Void 3 2 # Bowel Movements 1 - Exam Breasts: Present: normal Cardiovascular: Present: Regular rate Lungs: Present: Clear to auscultation, Normal air movement Abdomen: Present: normal appearance, soft, normal bowel sounds Uterus: Present: normal, firm, fundal height above umbilicus Extremities: Present: normal - Labs Labs: Abnormal lab results 06/23/22 06/23/22 Range/Units 10:19 10:19 WBC 12.2 H (4.5-11.0) K/mm3 Hgb 9.9 L (10.1-14.3) gm/dl MCV 76 L (79-97) fl MCH 25 L (28-32) pg RDW 15.7 H (13.2-15.2) % Seg Neutrophils % 74.9 H (40.0-70.0) % Seg Neutrophils # 9.2 H (1.8-7.7) K/mm3 Sodium 134 L (137-145) mmol/L Total Protein 6.1 L (6.3-8.2) g/dL Albumin 3.1 L (3.9-5) g/dL
--- NOTE | 2022-06-24 11:19 | Discharge Summary ---
Providers - Providers Date of Admission: 06/21/22 13:49 Date of discharge: 06/24/22 Attending physician: HAWK LOMAS Primary care physician: HAWK LOMAS Hospitalization Reason for admission: active labor Delivery: Episiotomy: none Laceration: 2nd degree Other procedures: none complications: UTI (r/o UTI; Recieved IV Rocephin; no CVAT) Discharge diagnosis: IUP at term delivered [place] baby: female Condition at discharge: Good Disposition: 01 HOME / SELF CARE / HOMELESS Plan - Provider Discharge Summary Activity: routine, no sex for 6 weeks, no heavy lifting 4 weeks, no strenuous exercise Diet: routine Instructions: routine Additional instructions: [] Smoking cessation referral if applicable(refer to patient education folder for contact #) [] Refer to [facility] Booklet Call your doctor immediately for: * Fever > 100.5 * Heavy vaginal bleeding ( >1 pad per hour) * Severe persistent headache * Shortness of breath * Reddened, hot, painful area to leg or breast * Drainage or odor from incision. * Keep incision clean and dry at all times and follow doctor's instructions regarding bathing/showering - Follow up plan Follow up: HAWK LOMAS MD [Primary Care Provider] - 7 Days
== END 2022-06-24 16:31 | disposition home or self-care (01) | DRG 774 ==
LOC: LD 13:42 → UNDOADMIN 13:42 → LD 13:49 → OB 06-22 05:51
PROVIDERS: ADMIT Obstetrics & Gynecology; ATTEND Obstetrics & Gynecology
PROC: 10E0XZZ Delivery of Products of Conception, External Approach (ICD-10-PCS; principal; 2022-06-22)
PROC: 0KQM0ZZ Repair Perineum Muscle, Open Approach (ICD-10-PCS; 2022-06-22)
PROC: 3E0R3BZ Introduction of Anesthetic Agent into Spinal Canal, Percutaneous Approach (ICD-10-PCS; 2022-06-22)
PROC: 00HU33Z Insertion of Infusion Device into Spinal Canal, Percutaneous Approach (ICD-10-PCS; 2022-06-22)
DX: O77.0 Labor and delivery complicated by meconium in amniotic fluid (principal); O98.32 Other infections with a predominantly sexual mode of transmission complicating childbirth; O70.1 Second degree perineal laceration during delivery; Z37.0 Single live birth; Z3A.39 39 weeks gestation of pregnancy; Z20.822 Contact with and (suspected) exposure to COVID-19; A60.00 Herpesviral infection of urogenital system, unspecified; O99.52 Diseases of the respiratory system complicating childbirth; O99.214 Obesity complicating childbirth; O13.4 Gestational [pregnancy-induced] hypertension without significant proteinuria, complicating childbirth; E66.01 Morbid (severe) obesity due to excess calories; J45.909 Unspecified asthma, uncomplicated; O90.81 Anemia of the puerperium; O86.20 Urinary tract infection following delivery, unspecified
CPT/HCPCS: 36415; 71046; 80053; 81001; 82565; 82570; 83615; 83880; 84156; 84450; 84460; 84550; 85014; 85018; 85025; 85027; 86850; 86900; 86901; 87086; 94640; G0378; J0696; J2590; J7120; U0003